=== PATIENT | female | born 1985 | race African-American/Black ===

== ENCOUNTER 2017-10-15 16:55 | Emergency (ER) | payer SELFPAY ==
[~2017-10-15] VITALS: Ht 167.6 cm; Wt 62.0 kg
[2017-10-15 22:30] VITALS: BP 121/84
== END 2017-10-15 23:10 | disposition home or self-care (01) ==
LOC: ER 17:09
DX: S16.1XXA Strain of muscle, fascia and tendon at neck level, initial encounter (principal); S80.02XA Contusion of left knee, initial encounter; E05.90 Thyrotoxicosis, unspecified without thyrotoxic crisis or storm; V49.88XA Car occupant (driver) (passenger) injured in other specified transport accidents, initial encounter; Y93.89 Activity, other specified; Y92.410 Unspecified street and highway as the place of occurrence of the external cause; Y99.8 Other external cause status
CPT/HCPCS: 73562; 81025; 99284